=== PATIENT | male | born 1965 | race Caucasian/White ===

== ENCOUNTER 2017-10-08 12:17 | Emergency (ER) | payer OTHER, SELFPAY ==
[2017-10-08] MEDS ORDERED: Dexamethasone 4 MG TAB ONE (12:37)
[2017-10-08] MEDS ORDERED: Acetaminophen 500 MG TAB ONE (12:37)
[2017-10-08] MEDS ORDERED: Colchicine 0.6 MG TAB ONE (12:37)
[2017-10-08] MEDS ORDERED: Ibuprofen 800 MG TAB ONE (12:37)
== END 2017-10-08 12:52 | disposition home or self-care (01) ==
LOC: MADERS 12:17
DX: M10.9 Gout, unspecified (principal)
CPT/HCPCS: 99283; J8540